=== PATIENT | male | born 1980 | race Caucasian/White ===

== ENCOUNTER 2019-10-21 20:51 | Emergency (ER) | payer BC, MEDICARE ==
[~2019-10-21] VITALS: Ht 180.3 cm; Wt 76.7 kg
[2019-10-21 20:52] VITALS: BP 128/80
[2019-10-21] MEDS ORDERED: TETanus/Pertussis (Acell)/Diphther VAC/PF (Tdap-Adult) 0.5ml syringe IMVAC ONE (21:15)
[2019-10-21] MEDS ORDERED: LIDOcaine 1% W/epiNEPHrine 1:200,000 10ml vial IJ ONE ×2 (21:15→21:25)
== END 2019-10-21 21:46 | disposition home or self-care (01) ==
LOC: ER 20:51
DX: S61.213A Laceration without foreign body of left middle finger without damage to nail, initial encounter (principal); G89.29 Other chronic pain; F41.9 Anxiety disorder, unspecified; Z72.89 Other problems related to lifestyle; Z98.890 Other specified postprocedural states; Z88.5 Allergy status to narcotic agent; W26.8XXA Contact with other sharp object(s), not elsewhere classified, initial encounter; Y93.89 Activity, other specified; Y92.89 Other specified places as the place of occurrence of the external cause; Y99.8 Other external cause status
CPT/HCPCS: 12002; 90471; 90715; 99283